=== PATIENT | female | born 1990 | race Two or more races ===

== ENCOUNTER → 2017-01-24 | Outpatient (CLI) | payer OTHER ==
--- NOTE | ~2017-01-24 | US128 ---
[id number] [facility] [address]. [place], [place] [address] [id number] O MR#: [id number] Acc #: [id number] NAME: DARCI HOWE : 1990 SEX: F STUDY DATE/TIME: 01/24/2017 8:49 UNIT: [facility] ROOM: STUDY DESCRIPTION: Thyroid Attending Physician: Daivan Caceres M.D. Referring Physician: Davian Caceres M.D. Ordering Physician: Davian Caceres M.D. Primary Care Physician: Davian Caceres M.D. MEDICAL IMAGING REPORT This report is preliminary unless electronic signature is present EXAM Thyroid ultrasound, 01/24/2017 HISTORY Thyromegaly. Enlarged thyroid on physical examination 01/19/2017. Weight gain and difficulty swallowing. Irregular menstrual cycles. Hair loss. FINDINGS The right thyroid lobe measured 1.8 cm x 5.2 cm x 1.7 cm while the left lobe measured 1.6 cm x 4.4 cm x 1.0 cm. The isthmus measured 5.0 mm in the AP direction. Both thyroid lobes are homogeneous in echotexture and demonstrate no cystic or solid mass lesions. There are no masses extrinsic to the thyroid. Normal blood flow is seen throughout both thyroid lobes. IMPRESSION Borderline to mild diffuse thyroid enlargement particularly the right lobe and the isthmus. No cystic or solid mass lesions were seen within the thyroid. Dictated by... Avel Montes M.D. THIS IS AN ELECTRONICALLY VERIFIED REPORT Avel Montes M.D. at 01/25/2017 8:01 AM ALBERTO/reese TD: 01/24/2017 11:46 JOB #: [id number] MEDICAL IMAGING REPORT Page 1 of 1 COPY
--- NOTE | ~2017-01-24 | US6 ---
[facility] A Service of [facility] & [facility] RADIOLOGY TEXT RESULTS PATIENT: DARCI HOWE LOCATION: [facility] : [birth year] UNIT #: [id number] AGE: [address]: Davian Caceres MD SEX: F ORDER DR: [id number] [facility] [address] [place], [place] [address] [id number] O MR#: [id number] Acc #: [id number] NAME: DARCI HOWE : 1990 SEX: F STUDY DATE/TIME: 01/24/2017 8:36 UNIT: [facility] ROOM: STUDY DESCRIPTION: US Abdominal Limited Attending Physician: Davian Caceres M.D. Referring Physician: Davian Caceres M.D. Ordering Physician: Davian Caceres M.D. Primary Care Physician: Davian Caceres M.D. MEDICAL IMAGING REPORT This report is preliminary unless electronic signature is present EXAM Right upper quadrant ultrasound, 01/24/2017. HISTORY Right upper quadrant abdominal pain, abdominal bloating, abdominal firmness and weight gain since July 2016. FINDINGS Ultrasound examination of the gallbladder is negative. There is no cholelithiasis, gallbladder wall thickening, or bile duct dilatation. The visualized liver is negative. IMPRESSION Negative gallbladder ultrasound examination. Dictated by... Avel Montes M.D. THIS IS AN ELECTRONICALLY VERIFIED REPORT Avel Montes M.D. at 01/25/2017 8:01 AM ALBERTO/nicole TD: 01/24/2017 11:52 JOB #: [id number] MEDICAL IMAGING REPORT Page 1 of 1 COPY
== END | disposition home or self-care (01) ==
LOC: CWCC 08:02
DX: R14.0 Abdominal distension (gaseous) (principal); R10.9 Unspecified abdominal pain; R63.5 Abnormal weight gain; L65.9 Nonscarring hair loss, unspecified; E01.0 Iodine-deficiency related diffuse (endemic) goiter
CPT/HCPCS: 76536; 76705